=== PATIENT | male | born 1995 | race Caucasian/White ===

== ENCOUNTER 2019-04-01 14:57 | Emergency (ER) | payer OTHER ==
[2019-04-01] MEDS ORDERED: Ibuprofen 800 MG TAB ONE (15:22)
--- NOTE | 2019-04-01 15:43 | RAD ---
XR Shoulder Lt 3 View STANDARD: 04/01/2019 3:22 PM CLINICAL INDICATION: Injury, pain COMPARISON: None. FINDINGS: Fracture:No fracture. Arthropathy:None of significance. Incidental findings:None of significance. IMPRESSION: 1. No acute osseous abnormality.
== END 2019-04-01 16:01 | disposition home or self-care (01) ==
LOC: ERS 14:57
DX: S43.402A Unspecified sprain of left shoulder joint, initial encounter (principal); F17.210 Nicotine dependence, cigarettes, uncomplicated; X50.9XXA Other and unspecified overexertion or strenuous movements or postures, initial encounter